=== PATIENT | male | born 1965 | race African-American/Black ===

== ENCOUNTER 2021-07-22 10:47 | Inpatient (IN) | payer MEDICAID ==
[~2021-07-22] VITALS: Ht 180.3 cm; Wt 71.3 kg
[2021-07-22] MEDS ORDERED: MORPHINE SULFATE 4 MG/ML CPJ (NOT FOR IM USE) IV ONE ×2 (11:45→16:45)
[2021-07-22 14:33] LABS: BASOPHILS % 0.7 % (0.0-2.0); EOSINOPHILS % 0.2 % (0.0-5.0); HEMOGLOBIN. 9.8 g/dL (14.0-18.0); LYMPHOCYTES % 9.1 % (20.0-50.0); MEAN CORPUSCULAR HEMOGLOBIN 28.3 pg (28.0-32.0); MEAN CORPUSCULAR VOLUME 89.8 fL (80.0-94.0); MEAN PLATELET VOLUME 9.3 fl (7.4-10.4); MONOCYTES % 6.7 % (2.0-8.0); NEUTROPHILS % 83.3 % (40.0-76.0); PLATELET 78 x1000/uL (130-400); RED BLOOD CELL COUNT 3.46 mill/uL (4.7-6.1); RED CELL DISTRIBUTION WIDTH 15.9 % (11.6-14.6)
[2021-07-22 14:41] LABS: CHLORIDE 99 mEq/L (98-107)
[2021-07-22] MEDS ORDERED: APIXABAN 5 MG TABLET PO STA (16:33)
[2021-07-22 18:22] LABS: INR 1.1; PROTHROMBIN TIME 12.2 sec (9.6-11.0)
[2021-07-22 18:28] LABS: D-DIMER > 35.20 mg/L FEU (<0.50)
[2021-07-22] MEDS ORDERED: CLONIDINE 0.1MG TABLET PO PRN (19:45)
[2021-07-22] MEDS ORDERED: LORAZEPAM 2MG/ML CPJ IV PRN (19:45)
[2021-07-22] MEDS ORDERED: ZOLPIDEM TARTRATE 5MG TABLET PO PRN (19:45)
[2021-07-22] MEDS ORDERED: ONDANSETRON HCL 4MG/2ML INJ IV PRN (19:45)
[2021-07-22] MEDS: MORPHINE SULFATE 4 MG/ML CPJ (NOT FOR IM USE) IV PRN (19:58)
[2021-07-22] MEDS ORDERED: NALOXONE HCL 0.4MG/ML VIAL IV PRN (20:00)
[2021-07-22] MEDS ORDERED: IOHEXOL-350 100 ML BOTTLE ONE (20:43)
[2021-07-22] MEDS ORDERED: SIMETHICONE 80MG TABLET CHEW PO PRN (23:00)
[2021-07-22] MEDS ORDERED: ENOXAPARIN 80MG/0.8ML SYR SUBCUT SCH (23:30)
[2021-07-23] MEDS: MORPHINE SULFATE 4 MG/ML CPJ (NOT FOR IM USE) IV PRN (00:11)
[2021-07-23 00:45] VITALS: BP 154/109
[2021-07-23 01:00] VITALS: BP 154/109
[2021-07-23] MEDS ORDERED: HYDR-4005 PO (01:47)
[2021-07-23] MEDS ORDERED: CLOP75TA33 PO (01:47)
[2021-07-23] MEDS ORDERED: SIME80TA15 PO (01:47)
[2021-07-23] MEDS ORDERED: ASPI-1497 PO (01:47)
[2021-07-23] MEDS ORDERED: ATOR40TA70 MT (01:47)
[2021-07-23] MEDS ORDERED: AMLO5TAB88 PO (01:47)
[2021-07-23] MEDS ORDERED: *PATIENT'S OWN MEDICATION STORAGE XX SCH ×2 (03:30)
[2021-07-23] MEDS: MORPHINE SULFATE 2 MG/ML CPJ (NOT FOR IM USE) IV PRN ×3 (04:22→19:54)
[2021-07-23 05:55] LABS: BASOPHILS % 0.5 % (0.0-2.0); EOSINOPHILS % 0.3 % (0.0-5.0); HEMATOCRIT. 28.5 % (42.0-52.0); HEMOGLOBIN. 9.2 g/dL (14.0-18.0); LYMPHOCYTES % 9.1 % (20.0-50.0); MEAN CORPUSCULAR HEMOGLOBIN 28.9 pg (28.0-32.0); MEAN CORPUSCULAR VOLUME 88.9 fL (80.0-94.0); MEAN PLATELET VOLUME 8.5 fl (7.4-10.4); MONOCYTES % 6.7 % (2.0-8.0); NEUTROPHILS % 83.4 % (40.0-76.0); PLATELET 56 x1000/uL (130-400); RED CELL DISTRIBUTION WIDTH 15.3 % (11.6-14.6)
[2021-07-23] MEDS: SODIUM CHLORIDE 0.9% INJ 3ML FLUSH IVF SCH ×3 (05:56→20:35)
[2021-07-23 07:57] VITALS: BP 127/82
[2021-07-23] MEDS: ACETAMINOPHEN 325MG TABLET PO PRN ×2 (08:26→15:25)
[2021-07-23 10:53] LABS: CHLORIDE 94 mEq/L (98-107)
[2021-07-23] MEDS ORDERED: HEPARIN 25,000 UNITS PREMIX 250 ML IV SCH (11:00)
[2021-07-23] MEDS ORDERED: HEPARIN 5000 UNITS/ML VIAL IV ONE (11:00)
[2021-07-23] MEDS ORDERED: HYDROCODONE/APAP 7.5/325MG 1 TAB TABLET PO PRN (11:00)
[2021-07-23 11:07] LABS: *AMPHETAMINES SCREEN URINE NEGATIVE (NEGATIVE); *BARBITURATES SCREEN URINE NEGATIVE (NEGATIVE); METHADONE URINE SCREEN NEGATIVE (NEGATIVE); OPIATES URINE SCREEN PRESUMTIVE POSITIVE (NEGATIVE); PHENCYCLIDINE URINE SCREEN NEGATIVE (NEGATIVE)
[2021-07-23 11:08] LABS: *BENZODIAZEPINES SCREEN URINE NEGATIVE (NEGATIVE); *COCAINE SCREEN URINE NEGATIVE (NEGATIVE); CANNABINOID URINE SCREEN PRESUMTIVE POSITIVE (NEGATIVE)
[2021-07-23] MEDS: HYDROCODONE/ACETAMINOPHEN 10/325MG TABLET PO PRN ×2 (11:16→22:07)
[2021-07-23] MEDS: SODIUM CHLORIDE 0.45% 1,000 ML IV SCH ×2 (11:36→20:35)
[2021-07-23] MEDS ORDERED: AMLODIPINE 5MG TABLET PO SCH (12:00)
[2021-07-23] MEDS ORDERED: ARGATROBAN 250 MG in SODIUM CHLORIDE 0.9% 250 ML IV SCH (12:30)
[2021-07-23] MEDS ORDERED: ARGATROBAN XX SCH (12:30)
[2021-07-23 12:38] VITALS: BP 126/81
[2021-07-23 14:51] LABS: TOTAL IRON BINDING CAPACITY 216 ug/dL (250-450)
[2021-07-23] MEDS: CEFEPIME 1,000 MG in DEXTROSE 5% WATER 50 ML IV SCH (15:25)
[2021-07-23] MEDS: VANCOMYCIN 1 G PREMIX 200 ML IV SCH (15:26)
[2021-07-23 15:55] VITALS: BP 130/86
[2021-07-23] MEDS ORDERED: IOHEXOL-350 100 ML BOTTLE ONE (16:15)
[2021-07-23 17:27] LABS: CLARITY URINE CLEAR (CLEAR); COLOR URINE DARK YELLOW (YELLOW); KETONES URINE NEGATIVE (NEGATIVE); LEUKOCYTE ESTERASE URINE TRACE (NEGATIVE); NITRITE URINE NEGATIVE (NEGATIVE); OCCULT BLOOD URINE 2+ (NEGATIVE); PROTEIN URINE 1+ (NEGATIVE); SPECIFIC GRAVITY URINE 1.018 (1.005-1.030)
[2021-07-23 19:11] LABS: FERRITIN 902 ng/mL (22-322)
[2021-07-23 19:15] LABS: VITAMIN B12 SERUM 938 pg/mL (211-911)
[2021-07-23] MEDS: ARGATROBAN 250 MG in SODIUM CHLORIDE 0.9% 247.5 ML IV SCH (19:53)
[2021-07-23 20:00] VITALS: BP 129/81
[2021-07-23] MEDS: ATORVASTATIN CALCIUM 40MG TABLET PO SCH (20:34)
[2021-07-24] VITALS: BP 135/78
[2021-07-24 00:16] LABS: HEMATOCRIT. 27.7 % (42.0-52.0); HEMOGLOBIN. 9.1 g/dL (14.0-18.0); MEAN CORPUSCULAR HEMOGLOBIN 28.3 pg (28.0-32.0); MEAN CORPUSCULAR VOLUME 86.3 fL (80.0-94.0); MEAN PLATELET VOLUME 8.4 fl (7.4-10.4); PLATELET 81 x1000/uL (130-400); RED BLOOD CELL COUNT 3.21 mill/uL (4.7-6.1); RED CELL DISTRIBUTION WIDTH 14.8 % (11.6-14.6)
[2021-07-24] MEDS: MORPHINE SULFATE 2 MG/ML CPJ (NOT FOR IM USE) IV PRN ×4 (00:37→16:23)
[2021-07-24] MEDS: VANCOMYCIN 1 G PREMIX 200 ML IV SCH ×3 (00:44→15:32)
[2021-07-24] MEDS: DILTIAZEM HCL 60MG TABLET PO SCH ×4 (02:23→21:33)
[2021-07-24] MEDS: CEFEPIME 1,000 MG in DEXTROSE 5% WATER 50 ML IV SCH ×2 (02:30→14:40)
[2021-07-24] MEDS: DIPHENHYDRAMINE 50MG/ML VIAL IV PRN (02:39)
[2021-07-24 03:06] LABS: HEMATOCRIT. 27.6 % (42.0-52.0); HEMOGLOBIN. 8.8 g/dL (14.0-18.0); MEAN CORPUSCULAR HEMOGLOBIN 28.3 pg (28.0-32.0); MEAN CORPUSCULAR VOLUME 88.5 fL (80.0-94.0); MEAN PLATELET VOLUME 8.3 fl (7.4-10.4); PLATELET 72 x1000/uL (130-400); RED BLOOD CELL COUNT 3.12 mill/uL (4.7-6.1)
[2021-07-24 03:11] LABS: CHLORIDE 92 mEq/L (98-107)
[2021-07-24 03:23] LABS: CREATINE KINASE MB FRACTION 77.5 ng/mL (0.5-3.6)
[2021-07-24] MEDS: SODIUM CHLORIDE 0.45% 1,000 ML IV SCH ×2 (03:30→10:25)
[2021-07-24 03:46] LABS: CREATINE KINASE 7157 IU/L (39-308)
[2021-07-24 04:00] VITALS: BP 123/81
[2021-07-24] MEDS: SODIUM CHLORIDE 0.9% INJ 3ML FLUSH IVF SCH ×3 (06:00→21:33)
[2021-07-24 07:53] VITALS: BP 143/87
[2021-07-24] MEDS: ACETAMINOPHEN 325MG TABLET PO PRN ×2 (08:30→12:33)
[2021-07-24] MEDS ORDERED: IRON SUCROSE COMPLEX 100 MG/5 ML ML IV SCH (11:45)
[2021-07-24 12:25] VITALS: BP 132/77
[2021-07-24] MEDS: SODIUM CHLORIDE 0.9% 1,000 ML IV SCH (14:40)
[2021-07-24] MEDS: FERROUS SULFATE 325MG TABLET PO SCH (15:32)
[2021-07-24 15:53] VITALS: BP 141/74
[2021-07-24 16:07] LABS: PLATELET ESTIMATE DECREASED
[2021-07-24 18:27] LABS: PLATELET ESTIMATE DECREASED
[2021-07-24 20:00] VITALS: BP 126/76
[2021-07-24] MEDS: ATORVASTATIN CALCIUM 40MG TABLET PO SCH (20:49)
[2021-07-25] VITALS: BP 116/68
[2021-07-25] MEDS: MORPHINE SULFATE 2 MG/ML CPJ (NOT FOR IM USE) IV PRN ×3 (01:34→13:10)
[2021-07-25] MEDS: CEFEPIME 1,000 MG in DEXTROSE 5% WATER 50 ML IV SCH ×2 (03:21→15:41)
[2021-07-25 04:00] VITALS: BP 132/80
[2021-07-25] MEDS: SODIUM CHLORIDE 0.9% 1,000 ML IV SCH ×2 (04:05→17:29)
[2021-07-25] MEDS: DILTIAZEM HCL 60MG TABLET PO SCH ×3 (05:20→21:32)
[2021-07-25] MEDS: SODIUM CHLORIDE 0.9% INJ 3ML FLUSH IVF SCH ×3 (05:20→21:32)
[2021-07-25 07:08] LABS: BASOPHILS % 0.4 % (0.0-2.0); EOSINOPHILS % 0.1 % (0.0-5.0); HEMATOCRIT. 25.3 % (42.0-52.0); LYMPHOCYTES % 7.6 % (20.0-50.0); MEAN CORPUSCULAR VOLUME 88.3 fL (80.0-94.0); MEAN PLATELET VOLUME 8.6 fl (7.4-10.4); MONOCYTES % 7.8 % (2.0-8.0); NEUTROPHILS % 84.1 % (40.0-76.0); PLATELET 125 x1000/uL (130-400); RED BLOOD CELL COUNT 2.86 mill/uL (4.7-6.1); RED CELL DISTRIBUTION WIDTH 15.3 % (11.6-14.6)
[2021-07-25 07:55] VITALS: BP 137/81
[2021-07-25] MEDS: ACETAMINOPHEN 325MG TABLET PO PRN ×3 (08:12→21:37)
[2021-07-25] MEDS: FERROUS SULFATE 325MG TABLET PO SCH ×2 (08:12→15:41)
[2021-07-25 08:16] LABS: CHLORIDE 98 mEq/L (98-107)
[2021-07-25 09:31] LABS: CREATINE KINASE 6240 IU/L (39-308)
[2021-07-25] MEDS: ARGATROBAN 250 MG in SODIUM CHLORIDE 0.9% 247.5 ML IV SCH (11:16)
[2021-07-25 11:59] VITALS: BP_SYST 123; BP_SYST 190; BP_DIAS 72; BP_DIAS 94
[2021-07-25] MEDS: VANCOMYCIN 750 MG PREMIX 150 ML IV SCH (14:32)
[2021-07-25 16:12] VITALS: BP 145/88
[2021-07-25 20:00] VITALS: BP 121/74
[2021-07-26] VITALS: BP 118/70
[2021-07-26] MEDS: MORPHINE SULFATE 2 MG/ML CPJ (NOT FOR IM USE) IV PRN ×4 (00:52→23:26)
[2021-07-26] MEDS: VANCOMYCIN 750 MG PREMIX 150 ML IV SCH ×2 (02:09→13:53)
[2021-07-26 04:00] VITALS: BP 126/73
[2021-07-26] MEDS: CEFEPIME 1,000 MG in DEXTROSE 5% WATER 50 ML IV SCH ×2 (04:23→15:35)
[2021-07-26] MEDS: DILTIAZEM HCL 60MG TABLET PO SCH ×3 (05:06→21:49)
[2021-07-26] MEDS: SODIUM CHLORIDE 0.9% INJ 3ML FLUSH IVF SCH ×3 (05:06→21:49)
[2021-07-26 06:46] LABS: BASOPHILS % 0.2 % (0.0-2.0); EOSINOPHILS % 0.2 % (0.0-5.0); HEMATOCRIT. 24.7 % (42.0-52.0); HEMOGLOBIN. 7.8 g/dL (14.0-18.0); LYMPHOCYTES % 7.5 % (20.0-50.0); MEAN CORPUSCULAR HEMOGLOBIN 27.8 pg (28.0-32.0); MEAN CORPUSCULAR VOLUME 88.1 fL (80.0-94.0); MEAN PLATELET VOLUME 8.1 fl (7.4-10.4); MONOCYTES % 9.9 % (2.0-8.0); NEUTROPHILS % 82.2 % (40.0-76.0); PLATELET 182 x1000/uL (130-400); RED CELL DISTRIBUTION WIDTH 15.6 % (11.6-14.6)
[2021-07-26 07:15] LABS: CHLORIDE 102 mEq/L (98-107)
[2021-07-26 08:00] VITALS: BP 142/88
[2021-07-26] MEDS ORDERED: POTASSIUM CHLORIDE 20MEQ TABLET SR PO SCH (09:45)
[2021-07-26] MEDS: FERROUS SULFATE 325MG TABLET PO SCH ×2 (10:04→17:21)
[2021-07-26] MEDS: SODIUM CHLORIDE 0.9% 1,000 ML IV SCH ×2 (10:05→21:51)
[2021-07-26 12:00] VITALS: BP 132/78
[2021-07-26] MEDS ORDERED: LIDOCAINE HCL 1% 20ML VIAL (Pyxis) INJ ONE (12:31)
[2021-07-26 16:00] VITALS: BP 153/92
[2021-07-26] MEDS: ACETAMINOPHEN 325MG TABLET PO PRN (17:22)
[2021-07-26 20:00] VITALS: BP 126/76
[2021-07-26] MEDS: MEROPENEM 1,000 MG in SODIUM CHLORIDE 0.9% 100 ML IV SCH (21:47)
[2021-07-26] MEDS: ARGATROBAN 250 MG in SODIUM CHLORIDE 0.9% 247.5 ML IV SCH (21:48)
[2021-07-27] VITALS: BP 120/81
[2021-07-27] MEDS: VANCOMYCIN 750 MG PREMIX 150 ML IV SCH ×2 (01:18→14:28)
[2021-07-27 04:00] VITALS: BP 134/89
[2021-07-27] MEDS: DILTIAZEM HCL 60MG TABLET PO SCH ×3 (04:55→21:00)
[2021-07-27] MEDS: MEROPENEM 1,000 MG in SODIUM CHLORIDE 0.9% 100 ML IV SCH ×3 (04:55→21:00)
[2021-07-27] MEDS: SODIUM CHLORIDE 0.9% INJ 3ML FLUSH IVF SCH ×3 (04:55→21:00)
[2021-07-27] MEDS: MORPHINE SULFATE 2 MG/ML CPJ (NOT FOR IM USE) IV PRN ×4 (04:57→20:59)
[2021-07-27 07:56] LABS: CHLORIDE 106 mEq/L (98-107)
[2021-07-27 08:00] VITALS: BP 155/83
[2021-07-27 08:17] LABS: CREATINE KINASE 1714 IU/L (39-308)
[2021-07-27 08:19] LABS: BASOPHILS % 0.4 % (0.0-2.0); EOSINOPHILS % 0.4 % (0.0-5.0); HEMATOCRIT. 22.5 % (42.0-52.0); HEMOGLOBIN. 7.3 g/dL (14.0-18.0); LYMPHOCYTES % 11.4 % (20.0-50.0); MEAN CORPUSCULAR VOLUME 86.3 fL (80.0-94.0); MEAN PLATELET VOLUME 7.2 fl (7.4-10.4); MONOCYTES % 11.3 % (2.0-8.0); NEUTROPHILS % 76.5 % (40.0-76.0); PLATELET 193 x1000/uL (130-400); RED CELL DISTRIBUTION WIDTH 15.8 % (11.6-14.6)
[2021-07-27] MEDS: POTASSIUM CHLORIDE 20MEQ TABLET SR PO SCH (09:02)
[2021-07-27] MEDS: FERROUS SULFATE 325MG TABLET PO SCH ×2 (09:02→17:27)
[2021-07-27] MEDS: SODIUM CHLORIDE 0.9% 1,000 ML IV SCH ×2 (09:03→21:01)
[2021-07-27 12:00] VITALS: BP 137/79
[2021-07-27 16:00] VITALS: BP 118/79
[2021-07-27 20:00] VITALS: BP 129/73
[2021-07-27] MEDS ORDERED: NALOXONE HCL 0.4 MG/ML 1ML VIAL IV PRN (20:30)
[2021-07-27] MEDS: HYDROCODONE/ACETAMINOPHEN 10/325MG TABLET PO PRN (21:51)
[2021-07-28] VITALS (7 sets, daily range): BP systolic 119–135; BP diastolic 70–114
[2021-07-28] MEDS: VANCOMYCIN 750 MG PREMIX 150 ML IV SCH ×2 (01:22→15:37)
[2021-07-28] MEDS: MORPHINE SULFATE 2 MG/ML CPJ (NOT FOR IM USE) IV PRN ×5 (04:15→22:57)
[2021-07-28] MEDS: MEROPENEM 1,000 MG in SODIUM CHLORIDE 0.9% 100 ML IV SCH ×3 (05:24→21:23)
[2021-07-28] MEDS: DILTIAZEM HCL 60MG TABLET PO SCH ×3 (05:24→21:24)
[2021-07-28] MEDS: SODIUM CHLORIDE 0.9% INJ 3ML FLUSH IVF SCH ×3 (05:25→21:24)
[2021-07-28] MEDS: ARGATROBAN 250 MG in SODIUM CHLORIDE 0.9% 247.5 ML IV SCH (05:25)
[2021-07-28 07:17] LABS: CHLORIDE 105 mEq/L (98-107)
[2021-07-28 07:41] LABS: BASOPHILS % 0.9 % (0.0-2.0); EOSINOPHILS % 0.6 % (0.0-5.0); HEMATOCRIT. 23.3 % (42.0-52.0); HEMOGLOBIN. 7.6 g/dL (14.0-18.0); LYMPHOCYTES % 16.5 % (20.0-50.0); MEAN CORPUSCULAR HEMOGLOBIN 27.9 pg (28.0-32.0); MEAN CORPUSCULAR VOLUME 85.8 fL (80.0-94.0); MEAN PLATELET VOLUME 7.3 fl (7.4-10.4); MONOCYTES % 11.7 % (2.0-8.0); NEUTROPHILS % 70.3 % (40.0-76.0); PLATELET 197 x1000/uL (130-400); RED BLOOD CELL COUNT 2.71 mill/uL (4.7-6.1); RED CELL DISTRIBUTION WIDTH 16.7 % (11.6-14.6)
[2021-07-28] MEDS: POTASSIUM CHLORIDE 20MEQ TABLET SR PO SCH (08:25)
[2021-07-28] MEDS: FERROUS SULFATE 325MG TABLET PO SCH ×2 (08:25→16:03)
[2021-07-28] MEDS: HYDROCODONE/ACETAMINOPHEN 10/325MG TABLET PO PRN ×2 (10:49→20:13)
[2021-07-28] MEDS: SODIUM CHLORIDE 0.9% 1,000 ML IV SCH (13:49)
[2021-07-29] VITALS (8 sets, daily range): BP systolic 117–144; BP diastolic 72–94
[2021-07-29] MEDS: VANCOMYCIN 750 MG PREMIX 150 ML IV SCH ×2 (02:00→13:21)
[2021-07-29] MEDS: SODIUM CHLORIDE 0.9% 1,000 ML IV SCH ×2 (02:01→13:23)
[2021-07-29] MEDS: HYDROCODONE/ACETAMINOPHEN 10/325MG TABLET PO PRN ×4 (02:11→21:08)
[2021-07-29] MEDS: DILTIAZEM HCL 60MG TABLET PO SCH ×3 (05:53→21:08)
[2021-07-29] MEDS: SODIUM CHLORIDE 0.9% INJ 3ML FLUSH IVF SCH ×3 (05:53→21:09)
[2021-07-29] MEDS: MEROPENEM 1,000 MG in SODIUM CHLORIDE 0.9% 100 ML IV SCH ×3 (05:53→21:08)
[2021-07-29] MEDS: MORPHINE SULFATE 2 MG/ML CPJ (NOT FOR IM USE) IV PRN (08:30)
[2021-07-29] MEDS: FERROUS SULFATE 325MG TABLET PO SCH ×2 (08:30→15:58)
[2021-07-29] MEDS: POTASSIUM CHLORIDE 20MEQ TABLET SR PO SCH (08:30)
[2021-07-29 09:51] LABS: BASOPHILS % 0.8 % (0.0-2.0); EOSINOPHILS % 0.9 % (0.0-5.0); HEMOGLOBIN. 7.4 g/dL (14.0-18.0); LYMPHOCYTES % 14.9 % (20.0-50.0); MEAN CORPUSCULAR VOLUME 87.4 fL (80.0-94.0); MONOCYTES % 12.9 % (2.0-8.0); NEUTROPHILS % 70.5 % (40.0-76.0); PLATELET 187 x1000/uL (130-400); RED BLOOD CELL COUNT 2.75 mill/uL (4.7-6.1); RED CELL DISTRIBUTION WIDTH 16.6 % (11.6-14.6)
[2021-07-29 09:55] LABS: INR 1.2; PARTIAL THROMBOPLASTIN TIME 35.3 sec (23.4-31.0); PROTHROMBIN TIME 12.7 sec (9.6-11.0)
[2021-07-29] MEDS: ARGATROBAN 250 MG in SODIUM CHLORIDE 0.9% 247.5 ML IV SCH (18:17)
[2021-07-29] MEDS: DIPHENHYDRAMINE 50MG/ML VIAL IV PRN (21:08)
[2021-07-29] MEDS ORDERED: WARFARIN SODIUM 5MG TABLET PO NR (23:30)
[2021-07-30] MEDS: HYDROCODONE/ACETAMINOPHEN 10/325MG TABLET PO PRN ×5 (00:58→20:42)
[2021-07-30] MEDS: VANCOMYCIN 750 MG PREMIX 150 ML IV SCH ×2 (01:00→13:12)
[2021-07-30] MEDS: SODIUM CHLORIDE 0.9% 1,000 ML IV SCH ×2 (03:56→13:23)
[2021-07-30 04:00] VITALS: BP 138/82
[2021-07-30] MEDS: DILTIAZEM HCL 60MG TABLET PO SCH ×3 (05:37→21:11)
[2021-07-30] MEDS: MEROPENEM 1,000 MG in SODIUM CHLORIDE 0.9% 100 ML IV SCH ×3 (05:38→21:11)
[2021-07-30] MEDS: SODIUM CHLORIDE 0.9% INJ 3ML FLUSH IVF SCH ×3 (05:38→21:11)
[2021-07-30 08:08] VITALS: BP 129/81
[2021-07-30 08:18] LABS: BASOPHILS % 1.3 % (0.0-2.0); EOSINOPHILS % 1.5 % (0.0-5.0); HEMATOCRIT. 22.7 % (42.0-52.0); HEMOGLOBIN. 7.2 g/dL (14.0-18.0); LYMPHOCYTES % 22.2 % (20.0-50.0); MEAN CORPUSCULAR HEMOGLOBIN 27.5 pg (28.0-32.0); MEAN CORPUSCULAR VOLUME 86.2 fL (80.0-94.0); MEAN PLATELET VOLUME 6.9 fl (7.4-10.4); MONOCYTES % 9.3 % (2.0-8.0); NEUTROPHILS % 65.7 % (40.0-76.0); PLATELET 156 x1000/uL (130-400); RED BLOOD CELL COUNT 2.63 mill/uL (4.7-6.1); RED CELL DISTRIBUTION WIDTH 16.4 % (11.6-14.6)
[2021-07-30] MEDS: FERROUS SULFATE 325MG TABLET PO SCH ×2 (08:22→15:50)
[2021-07-30] MEDS: POTASSIUM CHLORIDE 20MEQ TABLET SR PO SCH (08:22)
[2021-07-30 08:27] LABS: INR 2.6; PROTHROMBIN TIME 25.5 sec (9.6-11.0)
[2021-07-30 08:29] LABS: CHLORIDE 106 mEq/L (98-107)
[2021-07-30 11:59] VITALS: BP 127/88
[2021-07-30] MEDS: MORPHINE SULFATE 2 MG/ML CPJ (NOT FOR IM USE) IV PRN (12:49)
[2021-07-30 15:32] VITALS: BP 144/85
[2021-07-30] MEDS ORDERED: WARFARIN SODIUM 2MG TABLET PO SCH (18:00)
[2021-07-30] MEDS: ARGATROBAN 250 MG in SODIUM CHLORIDE 0.9% 247.5 ML IV SCH (19:57)
[2021-07-30 20:00] VITALS: BP 120/77
[2021-07-31] VITALS: BP 150/75
[2021-07-31] MEDS: HYDROCODONE/ACETAMINOPHEN 10/325MG TABLET PO PRN ×2 (00:54→16:33)
[2021-07-31] MEDS: VANCOMYCIN 750 MG PREMIX 150 ML IV SCH ×2 (01:52→13:24)
[2021-07-31] MEDS: SODIUM CHLORIDE 0.9% 1,000 ML IV SCH ×2 (01:56→22:29)
[2021-07-31 04:00] VITALS: BP 130/80
[2021-07-31] MEDS: DILTIAZEM HCL 60MG TABLET PO SCH ×3 (05:18→21:26)
[2021-07-31] MEDS: SODIUM CHLORIDE 0.9% INJ 3ML FLUSH IVF SCH ×3 (05:18→21:26)
[2021-07-31] MEDS: MEROPENEM 1,000 MG in SODIUM CHLORIDE 0.9% 100 ML IV SCH ×3 (05:18→21:26)
[2021-07-31 06:45] LABS: BASOPHILS % 0.7 % (0.0-2.0); HEMATOCRIT. 22.4 % (42.0-52.0); HEMOGLOBIN. 7.3 g/dL (14.0-18.0); LYMPHOCYTES % 18.1 % (20.0-50.0); MEAN CORPUSCULAR HEMOGLOBIN 27.8 pg (28.0-32.0); MEAN CORPUSCULAR VOLUME 85.6 fL (80.0-94.0); MEAN PLATELET VOLUME 6.8 fl (7.4-10.4); MONOCYTES % 12.2 % (2.0-8.0); PLATELET 188 x1000/uL (130-400); RED BLOOD CELL COUNT 2.62 mill/uL (4.7-6.1); RED CELL DISTRIBUTION WIDTH 16.7 % (11.6-14.6)
[2021-07-31 06:59] LABS: CHLORIDE 102 mEq/L (98-107)
[2021-07-31 07:59] VITALS: BP 135/82
[2021-07-31] MEDS: MORPHINE SULFATE 2 MG/ML CPJ (NOT FOR IM USE) IV PRN (08:13)
[2021-07-31] MEDS: POTASSIUM CHLORIDE 20MEQ TABLET SR PO SCH (08:13)
[2021-07-31] MEDS: FERROUS SULFATE 325MG TABLET PO SCH ×2 (08:13→16:33)
[2021-07-31 12:00] VITALS: BP 144/81
[2021-07-31 12:51] LABS: INR 2.5; PROTHROMBIN TIME 25.1 sec (9.6-11.0)
[2021-07-31 15:24] VITALS: BP 136/69
[2021-07-31] MEDS ORDERED: WARFARIN SODIUM 2MG TABLET PO SCH (18:00)
[2021-07-31 20:00] VITALS: BP 123/73
[2021-08-01] VITALS: BP 143/73
[2021-08-01] MEDS: VANCOMYCIN 750 MG PREMIX 150 ML IV SCH ×2 (02:07→12:46)
[2021-08-01 04:00] VITALS: BP 144/84
[2021-08-01] MEDS: SODIUM CHLORIDE 0.9% INJ 3ML FLUSH IVF SCH ×3 (05:28→20:36)
[2021-08-01] MEDS: MEROPENEM 1,000 MG in SODIUM CHLORIDE 0.9% 100 ML IV SCH ×2 (05:28→12:45)
[2021-08-01] MEDS: DILTIAZEM HCL 60MG TABLET PO SCH ×3 (05:28→20:35)
[2021-08-01 07:36] LABS: CHLORIDE 102 mEq/L (98-107)
[2021-08-01 07:57] LABS: BASOPHILS % 0.4 % (0.0-2.0); EOSINOPHILS % 0.6 % (0.0-5.0); HEMATOCRIT. 22.4 % (42.0-52.0); HEMOGLOBIN. 7.3 g/dL (14.0-18.0); LYMPHOCYTES % 14.9 % (20.0-50.0); MEAN CORPUSCULAR HEMOGLOBIN 27.8 pg (28.0-32.0); MEAN CORPUSCULAR VOLUME 85.1 fL (80.0-94.0); NEUTROPHILS % 74.1 % (40.0-76.0); PLATELET 186 x1000/uL (130-400); RED BLOOD CELL COUNT 2.63 mill/uL (4.7-6.1); RED CELL DISTRIBUTION WIDTH 16.8 % (11.6-14.6)
[2021-08-01 08:17] VITALS: BP 128/80
[2021-08-01] MEDS: POTASSIUM CHLORIDE 20MEQ TABLET SR PO SCH (08:41)
[2021-08-01] MEDS: FERROUS SULFATE 325MG TABLET PO SCH ×2 (08:41→16:46)
[2021-08-01] MEDS: MORPHINE SULFATE 2 MG/ML CPJ (NOT FOR IM USE) IV PRN (08:41)
[2021-08-01] MEDS: SODIUM CHLORIDE 0.9% 1,000 ML IV SCH (08:42)
[2021-08-01 11:41] VITALS: BP 130/68
[2021-08-01] MEDS: HYDROCODONE/ACETAMINOPHEN 10/325MG TABLET PO PRN ×2 (14:36→20:35)
[2021-08-01 15:37] LABS: INR 1.2
[2021-08-01 16:05] VITALS: BP 118/74
[2021-08-01] MEDS ORDERED: WARFARIN SODIUM 5MG TABLET PO NR (18:00)
[2021-08-01 20:00] VITALS: BP 129/80
[2021-08-02] VITALS: BP 114/78
[2021-08-02 04:00] VITALS: BP 135/63
[2021-08-02] MEDS: HYDROCODONE/ACETAMINOPHEN 10/325MG TABLET PO PRN ×3 (04:23→21:36)
[2021-08-02] MEDS: SODIUM CHLORIDE 0.9% INJ 3ML FLUSH IVF SCH ×3 (04:24→22:00)
[2021-08-02] MEDS: DILTIAZEM HCL 60MG TABLET PO SCH (04:24)
[2021-08-02 07:42] LABS: INR 1.4; PROTHROMBIN TIME 14.7 sec (9.6-11.0)
[2021-08-02 08:00] VITALS: BP 116/72
[2021-08-02] MEDS: POTASSIUM CHLORIDE 20MEQ TABLET SR PO SCH (10:18)
[2021-08-02] MEDS: FERROUS SULFATE 325MG TABLET PO SCH ×2 (10:18→16:37)
[2021-08-02 13:00] VITALS: BP 103/70
[2021-08-02] MEDS: DILTIAZEM HCL 90MG TABLET PO SCH ×2 (14:00→21:37)
[2021-08-02 16:00] VITALS: BP 114/67
[2021-08-02 20:00] VITALS: BP 119/91
[2021-08-03] VITALS: BP 117/74
[2021-08-03 04:00] VITALS: BP 132/75
[2021-08-03] MEDS: DILTIAZEM HCL 90MG TABLET PO SCH ×3 (05:50→21:58)
[2021-08-03] MEDS: HYDROCODONE/ACETAMINOPHEN 10/325MG TABLET PO PRN (05:51)
[2021-08-03] MEDS: SODIUM CHLORIDE 0.9% INJ 3ML FLUSH IVF SCH ×3 (05:52→21:58)
[2021-08-03 08:00] VITALS: BP 118/65
[2021-08-03 08:18] LABS: INR 1.4; PROTHROMBIN TIME 14.8 sec (9.6-11.0)
[2021-08-03] MEDS: POTASSIUM CHLORIDE 20MEQ TABLET SR PO SCH (11:43)
[2021-08-03] MEDS: FERROUS SULFATE 325MG TABLET PO SCH ×2 (11:43→17:18)
[2021-08-03 12:00] VITALS: BP 122/79
[2021-08-03] MEDS ORDERED: NALOXONE HCL 0.4MG/ML VIAL IV PRN (16:30)
[2021-08-03] MEDS: MORPHINE SULFATE 2 MG/ML CPJ (NOT FOR IM USE) IV PRN ×2 (17:17→21:57)
[2021-08-03 20:00] VITALS: BP 118/69
[2021-08-04] VITALS: BP 125/82
[2021-08-04] MEDS: MORPHINE SULFATE 2 MG/ML CPJ (NOT FOR IM USE) IV PRN ×3 (03:17→21:29)
[2021-08-04 04:00] VITALS: BP 131/85
[2021-08-04] MEDS: DILTIAZEM HCL 90MG TABLET PO SCH ×3 (06:28→21:30)
[2021-08-04] MEDS: SODIUM CHLORIDE 0.9% INJ 3ML FLUSH IVF SCH ×3 (06:28→21:27)
[2021-08-04 08:00] VITALS: BP 113/82
[2021-08-04 08:26] LABS: INR 1.1; PROTHROMBIN TIME 12.1 sec (9.6-11.0)
[2021-08-04] MEDS: FERROUS SULFATE 325MG TABLET PO SCH ×2 (09:22→16:42)
[2021-08-04] MEDS: POTASSIUM CHLORIDE 20MEQ TABLET SR PO SCH (09:22)
[2021-08-04 11:27] LABS: BASOPHILS % 0.6 % (0.0-2.0); EOSINOPHILS % 0.8 % (0.0-5.0); HEMATOCRIT. 22.6 % (42.0-52.0); HEMOGLOBIN. 7.2 g/dL (14.0-18.0); LYMPHOCYTES % 13.6 % (20.0-50.0); MEAN CORPUSCULAR HEMOGLOBIN 26.9 pg (28.0-32.0); MEAN CORPUSCULAR VOLUME 84.5 fL (80.0-94.0); MEAN PLATELET VOLUME 7.1 fl (7.4-10.4); MONOCYTES % 8.1 % (2.0-8.0); NEUTROPHILS % 76.9 % (40.0-76.0); PLATELET 227 x1000/uL (130-400); RED BLOOD CELL COUNT 2.68 mill/uL (4.7-6.1); RED CELL DISTRIBUTION WIDTH 17.7 % (11.6-14.6)
[2021-08-04 12:00] VITALS: BP 117/79
[2021-08-04 12:16] LABS: CHLORIDE 98 mEq/L (98-107)
[2021-08-04] MEDS ORDERED: FERROUS SULFATE 325MG TABLET PO SCH (13:30)
[2021-08-04 16:00] VITALS: BP 135/79
[2021-08-04] MEDS: ASPIRIN 81MG EC TABLET PO SCH (16:42)
[2021-08-04] MEDS: APIXABAN 2.5 MG TABLET PO SCH (18:53)
[2021-08-04 20:00] VITALS: BP 108/71
[2021-08-05] VITALS: BP 124/82
[2021-08-05] MEDS: MORPHINE SULFATE 2 MG/ML CPJ (NOT FOR IM USE) IV PRN ×4 (01:40→21:09)
[2021-08-05 04:00] VITALS: BP 126/81
[2021-08-05] MEDS: SODIUM CHLORIDE 0.9% INJ 3ML FLUSH IVF SCH ×3 (05:19→21:10)
[2021-08-05] MEDS: DILTIAZEM HCL 90MG TABLET PO SCH ×3 (05:19→21:10)
[2021-08-05 08:00] VITALS: BP 109/69
[2021-08-05] MEDS: ASPIRIN 81MG EC TABLET PO SCH (08:53)
[2021-08-05] MEDS: POTASSIUM CHLORIDE 20MEQ TABLET SR PO SCH (08:53)
[2021-08-05] MEDS: APIXABAN 2.5 MG TABLET PO SCH ×2 (08:53→17:49)
[2021-08-05] MEDS: FERROUS SULFATE 325MG TABLET PO SCH ×2 (08:53→17:49)
[2021-08-05 12:00] VITALS: BP 105/65
[2021-08-05 16:00] VITALS: BP 112/79
[2021-08-05 20:00] VITALS: BP 107/79
[2021-08-06] VITALS: BP 118/76
[2021-08-06] MEDS: MORPHINE SULFATE 2 MG/ML CPJ (NOT FOR IM USE) IV PRN ×2 (02:16→17:53)
[2021-08-06 04:00] VITALS: BP 117/70
[2021-08-06] MEDS: SODIUM CHLORIDE 0.9% INJ 3ML FLUSH IVF SCH ×3 (05:25→21:06)
[2021-08-06] MEDS: HYDROCODONE/ACETAMINOPHEN 5/325MG TABLET PO PRN ×3 (05:28→21:07)
[2021-08-06] MEDS: DILTIAZEM HCL 90MG TABLET PO SCH ×3 (05:28→21:06)
[2021-08-06 05:50] LABS: BASOPHILS % 0.5 % (0.0-2.0); EOSINOPHILS % 0.6 % (0.0-5.0); HEMATOCRIT. 22.7 % (42.0-52.0); HEMOGLOBIN. 7.5 g/dL (14.0-18.0); LYMPHOCYTES % 16.4 % (20.0-50.0); MEAN CORPUSCULAR HEMOGLOBIN 27.4 pg (28.0-32.0); MONOCYTES % 9.7 % (2.0-8.0); NEUTROPHILS % 72.8 % (40.0-76.0); PLATELET 347 x1000/uL (130-400); RED BLOOD CELL COUNT 2.73 mill/uL (4.7-6.1); RED CELL DISTRIBUTION WIDTH 17.9 % (11.6-14.6)
[2021-08-06 06:27] LABS: CHLORIDE 98 mEq/L (98-107)
[2021-08-06 08:00] VITALS: BP 123/81
[2021-08-06] MEDS: ASPIRIN 81MG EC TABLET PO SCH (08:52)
[2021-08-06] MEDS: APIXABAN 2.5 MG TABLET PO SCH ×2 (08:52→17:43)
[2021-08-06] MEDS: POTASSIUM CHLORIDE 20MEQ TABLET SR PO SCH (08:52)
[2021-08-06] MEDS: FERROUS SULFATE 325MG TABLET PO SCH ×2 (08:52→17:43)
[2021-08-06 12:00] VITALS: BP 142/85
[2021-08-06 16:00] VITALS: BP 105/25
[2021-08-06 20:00] VITALS: BP 130/80
[2021-08-07] VITALS: BP 113/78
[2021-08-07] MEDS: MORPHINE SULFATE 2 MG/ML CPJ (NOT FOR IM USE) IV PRN ×4 (01:01→21:12)
[2021-08-07 04:00] VITALS: BP 122/79
[2021-08-07] MEDS: SODIUM CHLORIDE 0.9% INJ 3ML FLUSH IVF SCH ×3 (05:40→21:12)
[2021-08-07] MEDS: DILTIAZEM HCL 90MG TABLET PO SCH ×3 (05:40→21:12)
[2021-08-07 08:00] VITALS: BP 115/75
[2021-08-07 08:23] LABS: BASOPHILS % 0.5 % (0.0-2.0); EOSINOPHILS % 0.7 % (0.0-5.0); HEMATOCRIT. 22.8 % (42.0-52.0); HEMOGLOBIN. 7.4 g/dL (14.0-18.0); MEAN CORPUSCULAR HEMOGLOBIN 26.8 pg (28.0-32.0); MEAN CORPUSCULAR VOLUME 83.4 fL (80.0-94.0); MEAN PLATELET VOLUME 6.8 fl (7.4-10.4); MONOCYTES % 9.4 % (2.0-8.0); NEUTROPHILS % 68.4 % (40.0-76.0); PLATELET 403 x1000/uL (130-400); RED BLOOD CELL COUNT 2.74 mill/uL (4.7-6.1); RED CELL DISTRIBUTION WIDTH 18.1 % (11.6-14.6)
[2021-08-07 08:41] LABS: CHLORIDE 99 mEq/L (98-107)
[2021-08-07] MEDS: FERROUS SULFATE 325MG TABLET PO SCH ×2 (09:43→17:34)
[2021-08-07] MEDS: APIXABAN 2.5 MG TABLET PO SCH ×2 (09:43→17:34)
[2021-08-07] MEDS: POTASSIUM CHLORIDE 20MEQ TABLET SR PO SCH (09:43)
[2021-08-07] MEDS: ASPIRIN 81MG EC TABLET PO SCH (09:43)
[2021-08-07] MEDS: HYDROCODONE/ACETAMINOPHEN 5/325MG TABLET PO PRN ×2 (09:43→18:09)
[2021-08-07 12:00] VITALS: BP 124/79
[2021-08-07 16:00] VITALS: BP 123/72
[2021-08-07 20:00] VITALS: BP 111/74
[2021-08-08] VITALS: BP 104/74
[2021-08-08] MEDS: HYDROCODONE/ACETAMINOPHEN 5/325MG TABLET PO PRN ×4 (01:49→22:18)
[2021-08-08 04:00] VITALS: BP 116/75
[2021-08-08] MEDS: DILTIAZEM HCL 90MG TABLET PO SCH ×3 (05:17→22:17)
[2021-08-08] MEDS: MORPHINE SULFATE 2 MG/ML CPJ (NOT FOR IM USE) IV PRN (05:17)
[2021-08-08] MEDS: SODIUM CHLORIDE 0.9% INJ 3ML FLUSH IVF SCH ×3 (05:17→22:17)
[2021-08-08 06:32] LABS: BASOPHILS % 0.7 % (0.0-2.0); EOSINOPHILS % 0.7 % (0.0-5.0); HEMATOCRIT. 23.7 % (42.0-52.0); HEMOGLOBIN. 7.7 g/dL (14.0-18.0); LYMPHOCYTES % 21.6 % (20.0-50.0); MEAN CORPUSCULAR HEMOGLOBIN 27.3 pg (28.0-32.0); MEAN CORPUSCULAR VOLUME 83.7 fL (80.0-94.0); MONOCYTES % 10.8 % (2.0-8.0); NEUTROPHILS % 66.2 % (40.0-76.0); PLATELET 469 x1000/uL (130-400); RED BLOOD CELL COUNT 2.83 mill/uL (4.7-6.1); RED CELL DISTRIBUTION WIDTH 18.5 % (11.6-14.6)
[2021-08-08 07:11] LABS: CHLORIDE 98 mEq/L (98-107)
[2021-08-08 08:00] VITALS: BP 134/82
[2021-08-08] MEDS: ASPIRIN 81MG EC TABLET PO SCH (09:35)
[2021-08-08] MEDS: FERROUS SULFATE 325MG TABLET PO SCH ×2 (09:35→16:31)
[2021-08-08] MEDS: POTASSIUM CHLORIDE 20MEQ TABLET SR PO SCH (09:35)
[2021-08-08] MEDS: APIXABAN 2.5 MG TABLET PO SCH (09:35)
[2021-08-08 12:00] VITALS: BP 122/86
[2021-08-08 16:00] VITALS: BP 115/86
[2021-08-08] MEDS: APIXABAN 5 MG TABLET PO SCH (16:16)
[2021-08-08 20:00] VITALS: BP 120/83
[2021-08-09] VITALS: BP 125/78
[2021-08-09 04:00] VITALS: BP 147/89
[2021-08-09] MEDS: HYDROCODONE/ACETAMINOPHEN 5/325MG TABLET PO PRN ×3 (04:35→14:21)
[2021-08-09] MEDS: DILTIAZEM HCL 90MG TABLET PO SCH ×3 (05:42→22:00)
[2021-08-09] MEDS: SODIUM CHLORIDE 0.9% INJ 3ML FLUSH IVF SCH ×3 (05:43→22:00)
[2021-08-09 08:00] VITALS: BP 132/91
[2021-08-09] MEDS: POTASSIUM CHLORIDE 20MEQ TABLET SR PO SCH (08:47)
[2021-08-09] MEDS: APIXABAN 5 MG TABLET PO SCH ×2 (08:47→16:43)
[2021-08-09] MEDS: FERROUS SULFATE 325MG TABLET PO SCH ×2 (08:47→16:43)
[2021-08-09] MEDS: ASPIRIN 81MG EC TABLET PO SCH (08:47)
[2021-08-09 11:02] LABS: BASOPHILS % 0.9 % (0.0-2.0); EOSINOPHILS % 0.8 % (0.0-5.0); HEMATOCRIT. 25.3 % (42.0-52.0); HEMOGLOBIN. 8.1 g/dL (14.0-18.0); LYMPHOCYTES % 15.7 % (20.0-50.0); MEAN CORPUSCULAR HEMOGLOBIN 26.6 pg (28.0-32.0); MEAN CORPUSCULAR VOLUME 83.5 fL (80.0-94.0); MEAN PLATELET VOLUME 6.7 fl (7.4-10.4); MONOCYTES % 8.9 % (2.0-8.0); NEUTROPHILS % 73.7 % (40.0-76.0); PLATELET 524 x1000/uL (130-400); RED BLOOD CELL COUNT 3.03 mill/uL (4.7-6.1); RED CELL DISTRIBUTION WIDTH 18.8 % (11.6-14.6)
[2021-08-09 11:47] LABS: CHLORIDE 98 mEq/L (98-107)
[2021-08-09 12:00] VITALS: BP 118/82
[2021-08-09 15:26] LABS: BG BASE EXCESS 2.8 mmol/L (-2.0-2.0); BG CARBOXYHEMOGLOBIN 0.2 % (0.5-1.5); BG DEOXYHEMOGLOBIN 2.5 % (0.0-5.0); BG FRACTION INSPIRED OXYGEN 21; BG HCO3 ACT 26.9 mmol/L (22.0-26.0); BG METHEMOGLOBIN 0.1 % (0.0-1.5); BG OXYGEN SATURATION 97.5 % (92.0-98.5); BG OXYHEMOGLOBIN 97.2 % (94.0-97.0); BG PH 7.456 (7.350-7.450); BG PO2 99.4 mmHg (75.0-100.0); BG SAMPLE SITE LEFT RADIAL; BG TOTAL HEMOGLOBIN 8.7 g/dL (12.0-18.0); BG VENT MODE ROOM AIR
[2021-08-09 16:00] VITALS: BP 138/82
[2021-08-09] MEDS ORDERED: CITRIC ACID/SODIUM CITRATE SOLN 30ML UDC PO SCH (17:00)
[2021-08-09 19:24] LABS: CHLORIDE 100 mEq/L (98-107)
[2021-08-09 20:00] VITALS: BP 125/65
[2021-08-10 04:00] VITALS: BP 125/79
[2021-08-10] MEDS: DILTIAZEM HCL 90MG TABLET PO SCH ×2 (06:00→13:45)
[2021-08-10] MEDS: SODIUM CHLORIDE 0.9% INJ 3ML FLUSH IVF SCH ×2 (06:30→22:05)
[2021-08-10 08:00] VITALS: BP 101/66
[2021-08-10] MEDS: FERROUS SULFATE 325MG TABLET PO SCH ×2 (09:05→19:31)
[2021-08-10] MEDS: HYDROCODONE/ACETAMINOPHEN 5/325MG TABLET PO PRN ×2 (09:06→19:38)
[2021-08-10] MEDS: ASPIRIN 81MG EC TABLET PO SCH (09:07)
[2021-08-10] MEDS: APIXABAN 5 MG TABLET PO SCH ×2 (09:07→19:31)
[2021-08-10] MEDS: POTASSIUM CHLORIDE 20MEQ TABLET SR PO SCH (09:10)
[2021-08-10 09:29] LABS: CHLORIDE 100 mEq/L (98-107)
[2021-08-10 09:38] LABS: BASOPHILS % 1.3 % (0.0-2.0); EOSINOPHILS % 1.2 % (0.0-5.0); HEMOGLOBIN. 7.6 g/dL (14.0-18.0); LYMPHOCYTES % 20.7 % (20.0-50.0); MEAN CORPUSCULAR HEMOGLOBIN 26.3 pg (28.0-32.0); MEAN CORPUSCULAR VOLUME 83.4 fL (80.0-94.0); MEAN PLATELET VOLUME 6.6 fl (7.4-10.4); MONOCYTES % 9.5 % (2.0-8.0); NEUTROPHILS % 67.3 % (40.0-76.0); PLATELET 529 x1000/uL (130-400); RED BLOOD CELL COUNT 2.88 mill/uL (4.7-6.1); RED CELL DISTRIBUTION WIDTH 18.7 % (11.6-14.6)
[2021-08-10 12:00] VITALS: BP 117/78
[2021-08-10] MEDS ORDERED: DOCUSATE SODIUM 100MG CAPSULE PO SCH (14:00)
[2021-08-10] MEDS: DILTIAZEM HCL 60MG TABLET PO SCH ×2 (14:00→22:00)
[2021-08-10 16:00] VITALS: BP 103/71
[2021-08-10 20:00] VITALS: BP 101/66
[2021-08-11] VITALS: BP 127/84
[2021-08-11] MEDS ORDERED: DOCUSATE SODIUM 100MG CAPSULE PO SCH (09:00)
== END 2021-08-11 01:30 | DRG 720 ==
LOC: ER 10:47 → 8WST 18:01 → UNDOADMIN 18:01 → EDBEDREQ 18:02 → EDBEDREQTM 18:02 → ENRESERV 20:53 → 6EST 08-09 14:44
PROVIDERS: ADMIT Internal Medicine; ATTEND Internal Medicine
PROC: 02HV33Z Insertion of Infusion Device into Superior Vena Cava, Percutaneous Approach (ICD-10-PCS; principal; 2021-07-26)
PROC: B548ZZA Ultrasonography of Superior Vena Cava, Guidance (ICD-10-PCS; 2021-07-26)
DX: A41.9 Sepsis, unspecified organism (principal); E43 Unspecified severe protein-calorie malnutrition; I70.261 Atherosclerosis of native arteries of extremities with gangrene, right leg; I82.431 Acute embolism and thrombosis of right popliteal vein; M62.82 Rhabdomyolysis; I70.92 Chronic total occlusion of artery of the extremities; D75.82 Heparin induced thrombocytopenia (HIT); E88.09 Other disorders of plasma-protein metabolism, not elsewhere classified; K75.9 Inflammatory liver disease, unspecified; L97.519 Non-pressure chronic ulcer of other part of right foot with unspecified severity; L03.116 Cellulitis of left lower limb; D50.9 Iron deficiency anemia, unspecified; E78.00 Pure hypercholesterolemia, unspecified; J44.9 Chronic obstructive pulmonary disease, unspecified; E87.6 Hypokalemia; F17.210 Nicotine dependence, cigarettes, uncomplicated; H54.62 Unqualified visual loss, left eye, normal vision right eye; K59.00 Constipation, unspecified; E78.5 Hyperlipidemia, unspecified; I10 Essential (primary) hypertension; R53.81 Other malaise; Z60.2 Problems related to living alone; E66.9 Obesity, unspecified; I25.10 Atherosclerotic heart disease of native coronary artery without angina pectoris; N50.1 Vascular disorders of male genital organs; S90.822A Blister (nonthermal), left foot, initial encounter; S90.821A Blister (nonthermal), right foot, initial encounter; X58.XXXA Exposure to other specified factors, initial encounter; L97.529 Non-pressure chronic ulcer of other part of left foot with unspecified severity; Z20.822 Contact with and (suspected) exposure to COVID-19; I70.262 Atherosclerosis of native arteries of extremities with gangrene, left leg; K52.9 Noninfective gastroenteritis and colitis, unspecified; Z79.01 Long term (current) use of anticoagulants; Z79.899 Other long term (current) drug therapy; Z85.528 Personal history of other malignant neoplasm of kidney; Z98.62 Peripheral vascular angioplasty status; Z79.02 Long term (current) use of antithrombotics/antiplatelets; Z79.82 Long term (current) use of aspirin; Z91.19 Patient's noncompliance with other medical treatment and regimen; Y92.89 Other specified places as the place of occurrence of the external cause; Y93.89 Activity, other specified; Y99.8 Other external cause status; Z68.21 Body mass index [BMI] 21.0-21.9, adult; Z71.6 Tobacco abuse counseling
CPT/HCPCS: 36415; 36600; 71045; 71275; 73620; 75635; 76937; 80048; 80053; 80076; 80202; 80305; 81003; 82270; 82375; 82542; 82550; 82553; 82607; 82728; 82805; 83540; 83550; 83735; 83880; 84145; 84443; 84484; 85025; 85379; 86022; 87426; 93005; 93306; 93922; 93970; 97162; 97166; 97530; 99285; J0692; J1200; J1650; J1741; J2060; J2185; J2270; J3370; J3490; J7030; J7040; J7050; J7060; Q9967